=== PATIENT | female | born 1970 | race Caucasian/White ===

== ENCOUNTER 2021-04-14 08:05 | Day surgery (SDC) | payer BC ==
[2021-04-14 08:33] LABS: Specific Gravity 1.025 (1.005-1.030)
[2021-04-14] MEDS ORDERED: Ringers Lactate 1,000 ML IV ONE (09:09)
[2021-04-14] MEDS ORDERED: GLYCOPYRROLATE 0.2 MG/ML SYR ONE (09:39)
[2021-04-14] MEDS ORDERED: propofoL 200 MG/20 ML VIAL IV ONE ×2 (09:39)
--- NOTE | 2021-04-14 10:07 | ENDO RPT ---
[address], [address] COLONOSCOPY PROCEDURE REPORT EXAM DATE: 04/14/2021 PATIENT NAME: Kami Ricardo MR #: [id number] BIRTHDATE: 1970 ATTENDING: Mj Walls DR STATUS: outpatient COMPUTER HARDWARE ENGINEER: Connie Fernandez RN and Fatimah Mendenhall RN INDICATIONS: The patient is a 51 yr old Female here for a colonoscopy due to colon cancer screening PROCEDURE PERFORMED: Screening Colonoscopy and Colonoscopy MEDICATIONS: Per Anesthesia. ESTIMATED BLOOD LOSS: None CONSENT: The patient understands the risks and benefits of the procedure and understands that these risks include, but are not limited to: sedation, allergic reaction, infection, perforation and/or bleeding. Alternative means of evaluation and treatment include, among others: physical exam, x-rays, and/or surgical intervention. The patient elects to proceed with this endoscopic procedure. DESCRIPTION OF PROCEDURE: During intra-op preparation period all mechanical medical equipment was checked for proper function. Hand hygiene and appropriate measures for infection prevention was taken. Procedure, possible complications, alternatives including, but not limited to possibility of bleeding, perforation, tear, infection, sepsis, need for surgery, need for blood transfusion, were explained to the patient. After the risks, benefits and alternatives of the procedure were thoroughly explained, Informed consent was verified, confirmed and timeout was successfully executed by the treatment team. The patient was placed in the left lateral position. A digital rectal exam was performed and revealed internal hemorrhoids. After appropriate level of anesthesia, the scope was passed. The [id number] ([id number]) endoscope was introduced through the anus and advanced to the cecum, which was identified by both the appendix and ileocecal valve. The quality of the prep was fair. The instrument was then slowly withdrawn as the colon was fully examined. Scope withdrawal time was 10 minutes. COLON FINDINGS: Small internal hemorrhoids were found. The colon mucosa was otherwise normal. Retroflexed views revealed no abnormalities. The scope was then completely withdrawn from the patient and the procedure terminated. ADVERSE EVENTS: There were no complications. IMPRESSIONS: 1. Small internal hemorrhoids 2. The colon mucosa was otherwise normal RECOMMENDATIONS: 1. avoid NSAIDS for 2 weeks 2. await biopsy results 3. fiber rich diet 4. follow-up: office 2 week(s) 5. Monitor for any evidence of rectal bleeding. 6. continue surveillance 7. hemorrhoidal hygiene 8. yearly hemoccult starting in 4 years RECALL: Return in 10 year(s) for Colonoscopy. Mj Walls DR eSigned: Mj Walls DR 04/14/2021 10:06 AM cc: CPT CODES: ICD9 CODES: PATIENT NAME: Kami Ricardo MR#: [id number]
[2021-04-14 10:39] VITALS: BP 120/82; TEMP 97.5; O2SAT 100
== END 2021-04-14 11:00 | disposition home or self-care (01) ==
LOC: OR 08:05
PROVIDERS: ATTEND Surgery
PROC: 0DJD8ZZ Inspection of Lower Intestinal Tract, Via Natural or Artificial Opening Endoscopic (ICD-10-PCS; principal; 2021-04-14 10:00)
DX: Z12.11 Encounter for screening for malignant neoplasm of colon (principal); K64.8 Other hemorrhoids
CPT/HCPCS: 81025; 45378; J2704 ×2; J7120

== ENCOUNTER 2021-04-18 07:59 | Day surgery (SDC) | payer BC ==
[2021-04-18] MEDS ORDERED: Ringers Lactate 1,000 ML IV ONE (08:41)
[2021-04-18] MEDS ORDERED: CEFAZOLIN/SWI 1gm 1 GM/10 ML SYR ONE (08:41)
[2021-04-18] MEDS ORDERED: CELECOXIB 100 MG CAPSULE ONE (09:52)
[2021-04-18] MEDS ORDERED: ACETAMINOPHEN 500 MG TAB ONE (09:53)
[2021-04-18] MEDS ORDERED: BUPIVACAINE 0.25% PF 30 ML VIAL ONE (10:27)
[2021-04-18] MEDS ORDERED: FENTANYL CITR 100 MCG/2 ML ONE (10:29)
[2021-04-18] MEDS ORDERED: propofoL 200 MG/20 ML VIAL IV ONE (10:29)
[2021-04-18] MEDS ORDERED: ROCURONIUM 50 MG/5 ML VIAL IV ONE (10:31)
[2021-04-18] MEDS ORDERED: LIDOCAINE 2% MPF 5 ML VIAL ONE (10:31)
[2021-04-18] MEDS ORDERED: MIDAZOLAM HCL 2 MG/2 ML INJ ONE (10:31)
[2021-04-18] MEDS ORDERED: ONDANSETRON 4 MG/2 ML VIAL ONE ×2 (11:11→12:48)
[2021-04-18] MEDS ORDERED: dexAMETHasone 4 MG/ML VIAL ONE (11:13)
--- NOTE | 2021-04-18 11:40 | P.OP ---
Preoperative diagnosis: Ventral Abdominal Wall Hernia Postoperative diagnosis: Ventral Abdominal Wall Hernia Primary procedure: Laparoscopic ventral hernia repair with mesh Anesthesia: geta + LOCAL Estimated blood loss: <5cc Specimen: none Findings: ~3 cm supraumbilical ventral abd hernia Complications: None Transferred to: Recovery Room Condition: Good
[2021-04-18] MEDS ORDERED: Phenylephrine HCl 10 MG/ML 1 ML VIAL ONE (11:52)
[2021-04-18] MEDS ORDERED: GLYCOPYRROLATE 0.2 MG/ML SYR ONE (11:57)
[2021-04-18] MEDS ORDERED: NEOSTIGMINE 1 MG/ML -5 ML ONE (11:58)
[2021-04-18] MEDS: HYDROMORPHONE HCL 1 MG/ML INJ ONE ×2 (12:00→12:05)
[2021-04-18] MEDS: FENTANYL CITR 100 MCG/2 ML ONE ×2 (12:17→12:26)
--- NOTE | 2021-04-18 12:23 | OP ---
Date of Procedure: 04/18/2021 Surgeon: Mj Walls MD, Preoperative Diagnosis: Ventral abdominal hernias. Postperative Diagnosis: Ventral abdominal hernias. Procedure Performed: Laparoscopic ventral hernia repair with mesh. Anesthesia: General endotracheal plus local with 0.25% Marcaine. Estimated Blood Loss: Less than 5 mL. Specimen: None. Findings: Approximately 3 cm supraumbilical and ventral abdominal hernia with entrapped incarcerated omental fat. Complications: None. Disposition: The patient transferred recovery room in good condition. Procedure In Detail: After informed was obtained, the patient was brought to the operating room, pre pped and draped in the usual sterile fashion. After adequate anesthesia was achieved, a left upper q uadrant area was anesthetized with 0.25% Marcaine, sharply incised. A 5 mm trocar was placed under d irect visualization without evidence of complication. There was no injury to vital structures. I th en inspected the abdominal wall and found a large ventral abdominal wall hernia with entrapped incarc erated omentum and falciform adipose tissue entrapped within the hernia defect. I then placed an add itional trocar in the left lower quadrant. This was similarly anesthetized, sharply incised. A 5 mm trocar was placed under direct visualization without evidence of complication. The left upper quadr ant trocar was then up-sized to a 12 mm under direct visualization without evidence of complication. I then used a LigaSure device to take the abdominal contents/adipose tissue out of the hernia sac wi thout evidence complication. All anterior abdominal contents returned out of the hernia and hernia s ac was clean at this point after removing the preperitoneal fat as well from the falciform ligament a nd sweeping it back cranially to allow for an appropriate landing zone for the mesh. At this point, the hernia was found to be approximately 3 cm in size. I then brought an Endo stitch with the V-Loc suture and closed the hernia defect in a running fashion with a 0 V-Loc lock suture in a running [facility] ion without evidence of complication. I then brought an 11 cm mesh [address] with the [facility] positioning system mesh into the abdominal cavity, placed it the along the peritoneum after using th e balloon deployment system and deployed the balloon at this point after using a EnMarily to c entrally position the mesh. At this point, a Sorbafix absorbable fixation tacker was used to secure a single crown circumferentially around at this point. The balloon deployment system was removed and the remainder of the absorbable fixation tacks were used. Approximately 45 to 50 tacks were used on the anterior abdominal wall for double crown type closure with good apposition of the mesh to the an terior abdominal wall. I then removed the left upper quadrant trocar and closed the left upper quadr ant trocar site using a En-Marily suture passer with a 0 Vicryl in interrupted fashion with goo d approximation of tissues. The abdomen was then completely desufflated under direct visualization w ithout evidence of complication. The remaining trocars were removed. All skin incisions were copiou sly irrigated and closed with 4-0 Monocryl in a running fashion. Dermabond was placed over top. The patient tolerated the procedure well without evidence of complication and transferred to PACU in goo d condition. All counts were correct at the end of the case. KRISTEN/SHIRLEY Voice ID: [id number] Report ID: [id number]
[2021-04-18] MEDS ORDERED: HYDROCODONE/APAP 7.5/325 MG TAB ONE (13:25)
[2021-04-18 15:38] VITALS: BP 130/78; TEMP 98; O2SAT 98
== END 2021-04-18 14:50 | disposition home or self-care (01) ==
LOC: OR 07:59
PROVIDERS: ATTEND Surgery
PROC: 0WUF4JZ Supplement Abdominal Wall with Synthetic Substitute, Percutaneous Endoscopic Approach (ICD-10-PCS; principal; 2021-04-18 09:15)
DX: K43.9 Ventral hernia without obstruction or gangrene (principal); Z20.822 Contact with and (suspected) exposure to COVID-19
CPT/HCPCS: 81025; 49652; U0003; J2704; J1100; J2370; J2250; J3010 ×2; J1170; J2710; J0690; J7120; J2405 ×2; C1781